=== PATIENT | female | born 1995 | race Caucasian/White ===

== ENCOUNTER 2020-08-25 09:38 | Emergency (ER) | payer OTHER ==
[~2020-08-25] VITALS: Ht 160 cm; Wt 79.4 kg
[~2020-08-25 09:38] MED LIST: BENA25CA2 PO; COLA100C5 PO; FOLI800C PO; IBUP600T42 PO; MAPA500T2 PO; MOTR200T44 PO; MULT1CHW25 PO
[2020-08-25 10:43] LABS: HEMOGLOBIN 13.8 g/dl (12.0-15.5); MEAN CORPUSCULAR HEMOGLOBIN 28.5 pg (27.0-33.0); MEAN CORPUSCULAR HGB CONC 32.1 g/dl (32.0-36.5); MEAN CORPUSCULAR VOLUME 88.7 fl (80.0-96.0); PLATELET COUNT, AUTOMATED 335 10^3/uL (150-450); RED BLOOD COUNT 4.85 10^6/uL (4.00-5.40); WHITE BLOOD COUNT 8.5 10^3/uL (4.0-10.0)
[2020-08-25 11:44] VITALS: BP 111/65
== END 2020-08-25 11:47 | disposition home or self-care (01) ==
LOC: M ED 09:38
DX: O36.80X0 Pregnancy with inconclusive fetal viability, not applicable or unspecified (principal); Z87.59 Personal history of other complications of pregnancy, childbirth and the puerperium; Z86.16 Personal history of COVID-19; Z3A.00 Weeks of gestation of pregnancy not specified

== ENCOUNTER → 2020-09-07 | Outpatient (CLI) | payer OTHER | LOC: M LAB 14:06 | PROVIDERS: ATTEND Physician Assistant Medical | DX: Z32.01 Encounter for pregnancy test, result positive (principal) ==

== ENCOUNTER → 2021-01-06 | Outpatient (CLI) | payer OTHER ==
[~2021-01-06] MED LIST changes: +ONDA4TAB6 PO; +PRENMIS3 PO
== END ==
LOC: M LAB 08:12
PROVIDERS: ATTEND Physician Assistant Medical
DX: N93.8 Other specified abnormal uterine and vaginal bleeding (principal)

== ENCOUNTER → 2025-06-24 | Outpatient (RCR) ==
[2020-07-19 10:31] LABS: RSV AMPLIFICATION NEGATIVE (NEGATIVE)
[~2025-06-24] MED LIST changes: +ONDA-282 PO; -ONDA4TAB6 PO
== END ==
LOC: M EMPSSV 05-31 08:12 → M EMPSKH 05-31 08:12
PROVIDERS: ATTEND Family Medicine
DX: Z20.828 Contact with and (suspected) exposure to other viral communicable diseases (principal)